=== PATIENT | male | born 1975 | race Hispanic/Latino ===

== ENCOUNTER 2023-08-24 11:11 | Outpatient (RCR) | payer OTHER, SELFPAY | END 2023-09-16 10:54 | disposition home or self-care (01) | LOC: RPT 11:11 | PROVIDERS: ATTENDING PHYSICIAN Nurse Practitioner Acute Care | DX: M54.16 Radiculopathy, lumbar region (principal) | CPT/HCPCS: 97110; 97112; 97161 ==

== ENCOUNTER → 2024-04-05 10:40 | Outpatient (REF) | payer OTHER, SELFPAY ==
[2024-04-05 13:03] LABS: ALT (SGPT) 26 U/L (0-50); AST (SGOT) 40 U/L (17-59); Albumin 4.8 g/dl (3.5-5.0); Alkaline Phosphatase 70 U/L (38-126); Blood Urea Nitrogen 14 mg/dl (9-20); Calcium 9.8 mg/dl (8.4-10.2); Carbon Dioxide 29 mmol/L (22-30); Chloride 101 mmol/L (98-107); Glucose 88 mg/dl (70-99); HDL Cholesterol 36 mg/dl; LDL Cholesterol, Calculated 123 mg/dl; Potassium 4.7 mmol/L (3.5-5.1); Sodium 139 mmol/L (135-145); Total Bilirubin 0.8 mg/dl (0.2-1.3); Total Cholesterol 201 mg/dl (50-199); Total Protein 7.4 g/dl (6.3-8.2); Triglyceride 212 mg/dl (10-149); Uric Acid 7.1 mg/dl (3.5-8.5); Very Low Density Lipoprotein 42 mg/dl (0-30); eGFR > 60.00
[2024-04-05 13:16] LABS: Glycohemoglobin (HgbA1c) 5.4 % (4.0-5.6)
== END ==
LOC: CLINIC 10:40
PROVIDERS: ATTENDING PHYSICIAN Nurse Practitioner Acute Care
DX: R73.03 Prediabetes (principal); E78.1 Pure hyperglyceridemia; Z87.39 Personal history of other diseases of the musculoskeletal system and connective tissue
CPT/HCPCS: 36415; 80053; 80061; 83036; 84550

== ENCOUNTER → 2025-05-24 06:45 | Outpatient (REF) | payer OTHER, SELFPAY ==
[2025-05-24 07:26] LABS: Hematocrit 42.7 % (39.0-52.0); Hemoglobin 15.9 g/dL (13.0-18.0); Mean Corp Hgb Conc. 37.2 g/dL (33.0-37.0); Mean Corpuscular Volume 88.8 fL (80.0-94.0); Platelet Count 211 10^3/uL (130-400); Red Cell Dist. Width 11.7 % (11.5-14.5)
[2025-05-24 07:45] LABS: ALT (SGPT) 29 U/L (0-50); AST (SGOT) 38 U/L (17-59); Albumin 4.8 g/dl (3.5-5.0); Alkaline Phosphatase 62 U/L (38-126); Blood Urea Nitrogen 14 mg/dl (9-20); Calcium 9.5 mg/dl (8.4-10.2); Carbon Dioxide 28 mmol/L (22-30); Chloride 105 mmol/L (98-107); Glucose 144 mg/dl (70-99); HDL Cholesterol 41 mg/dl; LDL Cholesterol, Calculated 125 mg/dl; Potassium 4.5 mmol/L (3.5-5.1); Sodium 139 mmol/L (135-145); Total Protein 7.7 g/dl (6.3-8.2); Very Low Density Lipoprotein 48 mg/dl (0-30); eGFR > 60.00
[2025-05-24 09:49] LABS: Glycohemoglobin (HgbA1c) 6.2 % (4.0-5.6)
[2025-05-26 17:38] LABS: FIT-Fecal Occult Blood Interp Negative
== END ==
LOC: CLINIC 06:45
PROVIDERS: ATTENDING PHYSICIAN Nurse Practitioner Adult Health
DX: Z00.00 Encounter for general adult medical examination without abnormal findings (principal); Z12.11 Encounter for screening for malignant neoplasm of colon
CPT/HCPCS: 36415; 80053; 80061; 83036; 83520; 84443; 85027

== ENCOUNTER 2025-07-08 14:24 | Emergency (ER) | payer SELFPAY ==
[2025-07-08 14:35] VITALS: BP 190/110
[2025-07-08] MEDS: KEFLEX 500 MG PO (15:30)
--- NOTE | 2025-07-08 16:12 | ED.GENMED ---
History of Present Illness
General
Chief Complaint: Musculo-Skeletal Complaint
Source: patient
Exam Limitations: none
Time Seen by Provider: 07/08/25 15:09
History of Present Illness
History of Present Illness:
Patient crushed his left fifth finger at work. Tetanus less than 5.
Past History
Past History
ED Past Medical History: None
ED Past Surgical History: None
Social History
Tobacco: Non-smoker
Phy Exam
Physical Exam
Physical Exam:
General: Nontoxic appearing in no distress
Skin: Warm and dry, no rash
Neuro: Alert, nontoxic, grossly nonfocal
Psychiatric: Good eye contact and appropriate
Musculoskeletal: Crush injury to the left fifth finger with a laceration across the dorsal aspect. Nail is intact to the base but protruding proximately at the laceration site. Open fracture. Adequate blood flow to the tip
Course
Orders/Labs/Results
Orders:
Orders
07/08/25 15:17
Cephalexin Monohydrate [Keflex] 500 mg PO NOW STA
Finger(s)/Thumb 2 View Lt [CR Finger(s)/thumb Min 2 Vw Lt] Urgent
Comment:
Reason For Exam: Crushed fifth digit
07/08/25 16:18
Ibuprofen [Motrin] 600 mg PO NOW STA
Vital Signs
Initial and Last Documented VS:
Initial Vital Signs
Temp Pulse Resp BP Pulse Ox
97.8 F 120 18 190/110 97
07/08/25 14:35 07/08/25 14:35 07/08/25 14:35 07/08/25 14:35 07/08/25 14:35
Last Documented Vital Signs
Temp Pulse Resp BP Pulse Ox
97.8 F 120 18 167/102 97
07/08/25 14:35 07/08/25 14:35 07/08/25 14:35 07/08/25 16:19 07/08/25 16:16
Procedures
Laceration Closure
Left Fifth Finger:
Status of Wound: clean
Size of Wound in cm: 2
Description of Wound Edges: ragged
Preparation: cleaned with saline and cleaned with Betadine
Anesthesia: Digital-Regional
Revision/Debridement: extensive revision
Wound exploration: explored to base- no FB
Type of Closure: single layer closure
Skin Closure Material: 5-0 nylon
Number of sutures: 6
Additional information:
Nail base was trimmed. Nonviable tissue was trimmed. Copious irrigation. Sutured the nail to the proximal end of the distal phalanx. Good capillary refill.
Digital Block
Location of injection for digital block: head of metacarpals
Indiction for Digital Block: surgical repair
Was sensory exam normal prior to exam?: intack pin prick
Type of anesthesia: 1% Lidocaine w/o EPI
Complications: none- good anesthesia
MDM/Problems Addressed
Differential Diagnosis Includes:
Reviewed with orthopedics. Patient suture splint antibiotics and orthopedic follow-up
*Radiology
Radiology exam reviewed: preliminary read by ED provider (Fracture distal tuft)
*Pulse Oximetry
SaO2: 97
Oxygen Mode of Delivery: Room air
Patient hypoxic: no
*Critical Care Note
Total Time (30-74mins, 75-104mins- exclusive of procedures): Not Applicable
ED Attending Note
-
Portions of this chart may have been created with voice recognition software.� Occasional wrong word or��sound alike� substitutions may have occurred due to the inherent limitations of voice recognition software.
Discharge Plan
Departure
Patient Disposition: Home (Routine Discharge)
Date of Disposition: 07/08/25
Time of Disposition: 16:14
Patient with high blood pressure during this ER visit?: Yes
Discharge Problem:
Open fracture/crush injury/nail injury l, Left fifth digit
Instructions: Crush Injury (DC), Nail Avulsion (DC), Finger Fracture ED, BLOOD PRESSURE, Laceration
Prescriptions:
New
cephalexin 500 mg capsule
500 mg PO QID 7 Days Qty: 28 0RF
Referrals:
Malcolm Dietz MD [Active, Orthopedics] - Tomorrow
Activity Restrictions/Additional Instructions:
The prescription was sent to your pharmacy
Call the hand specialist tomorrow for close follow-up
Advil or Motrin for pain. You can also take Tylenol
Interventions
Interventions:
*General Assessment Last Done: 07/08/25 14:35
ED-Musculoskeletal Assessment Last Done: 07/08/25 15:15
Discharge Date and Time
Print Language: [id number]
[2025-07-08 16:19] VITALS: BP 167/102
[2025-07-08] MEDS: MOTRIN 600 MG PO (16:22)
== END 2025-07-08 16:32 | disposition home or self-care (01) ==
LOC: EMR 14:24
PROVIDERS: EMERGENCY PHYSICIAN Emergency Medicine
DX: S62.637B Displaced fracture of distal phalanx of left little finger, initial encounter for open fracture (principal); S67.197A Crushing injury of left little finger, initial encounter; W23.0XXA Caught, crushed, jammed, or pinched between moving objects, initial encounter; Y99.0 Civilian activity done for income or pay
CPT/HCPCS: 12001; 99283; 73140

== ENCOUNTER → 2025-07-10 06:29 | Outpatient (REF) | payer OTHER, SELFPAY ==
[2025-07-10 07:20] LABS: Hematocrit 43.6 % (39.0-52.0); Hemoglobin 15.8 g/dL (13.0-18.0); Mean Corp Hgb Conc. 36.2 g/dL (33.0-37.0); Mean Corpuscular Volume 90.1 fL (80.0-94.0); Nucleated Red Blood Cells % 0 % (-); Platelet Count 223 10^3/uL (130-400); Red Cell Dist. Width 11.6 % (11.5-14.5)
[2025-07-10 07:40] LABS: Blood Urea Nitrogen 12 mg/dl (9-20); Calcium 9.7 mg/dl (8.4-10.2); Carbon Dioxide 30 mmol/L (22-30); Chloride 102 mmol/L (98-107); Glucose 160 mg/dl (70-99); Potassium 5.0 mmol/L (3.5-5.1); Sodium 140 mmol/L (135-145); eGFR > 60.00
== END ==
LOC: RCS 06:29
PROVIDERS: ATTENDING PHYSICIAN Orthopaedic Surgery
DX: Z01.818 Encounter for other preprocedural examination (principal)
CPT/HCPCS: 36415; 80048; 85025; 93005